=== PATIENT | female | born 1980 | race Caucasian/White ===

== ENCOUNTER → 2020-07-26 | Outpatient (CLI) | payer OTHER ==
[~2020-07-26] MED LIST: FLEXERIL PO; HYDROCODON-ACE1 EAC7 PO; HYDROCODONE-AP1 EAC6 PO; LEXAPRO20 MG PO; MEDROLDOSEPACK PO; TRAMADOL 50 MG50 MG PO; TYLENOL325 MG PO
== END ==
LOC: M.ULTRA 07:30
PROVIDERS: ATTEND Nurse Practitioner Family
DX: R10.84 Generalized abdominal pain (principal)

== ENCOUNTER 2020-09-28 08:22 | Emergency (ER) | payer OTHER ==
[~2020-09-28] VITALS: Ht 154.9 cm; Wt 90.7 kg
[2020-09-28 08:25] VITALS: BP 137/100
[2020-09-28] MEDS ORDERED: FLEXERIL PO (08:46)
[2020-09-28] MEDS ORDERED: PREDNISONE50 MG PO (08:46)
[2020-09-28] MEDS ORDERED: HYDROCODON-ACE1 EAC7 PO (08:46)
[2020-09-28] MEDS ORDERED: IBUPROFEN 800800 M1 PO (08:46)
== END 2020-09-28 08:59 | disposition home or self-care (01) ==
LOC: M.ERS 08:22
DX: M54.42 Lumbago with sciatica, left side (principal); G43.909 Migraine, unspecified, not intractable, without status migrainosus; M79.7 Fibromyalgia; Z90.89 Acquired absence of other organs; Z90.711 Acquired absence of uterus with remaining cervical stump; Z88.5 Allergy status to narcotic agent; Z91.048 Other nonmedicinal substance allergy status

== ENCOUNTER → 2021-04-03 | Outpatient (CLI) | payer OTHER ==
[~2021-04-03] MED LIST changes: +IBUPROFEN 800800 M1 PO; +PREDNISONE50 MG PO
== END ==
LOC: M.RAD 04-02 11:54
PROVIDERS: ATTEND Nurse Practitioner Family
DX: N63.21 Unspecified lump in the left breast, upper outer quadrant (principal); N60.01 Solitary cyst of right breast; N64.4 Mastodynia

== ENCOUNTER → 2021-04-09 | Outpatient (CLI) | payer OTHER ==
--- NOTE | 2021-04-10 17:06 | PATH ---
[address] [address] PATHOLOGY RPT PROCEDURE Name: LIT ARAUZLO Richard Room: [facility].#: [id number] Admission: 04/09/21 Date of : 76 Discharge: Report #: [id number] Path Case #: [id number] [facility] Accession Number: [id number] . 01 Material submitted: . breast - LEFT BREAST BIOPSY FOR MASS. Modifiers: left . 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 See comment. (STEPHANIE:pit; 04/10/2021) . QTP 04/10/2021 1236 Local . 02 Comment: The longest intact span of PASH of 8 mm is seen in a core of A6. Reviewed with Dr. Edilson Silva on 04/10/2021 who agrees with the diagnosis. (STEPHANIE:pit; 04/10/2021) . 02 Electronically signed: . William Wick MD, Pathologist NPI- [id number] . 01 Gross description: . The specimen is received in formalin, labeled "Ward Arauz, left breast mass". Received are 6 needle cores of fibrofatty tissue measuring 7.2 x 3.0 x 0.4 cm in aggregate dimensions. The specimen is submitted entirely in cassettes A1-A6. The specimen is collected at 1145 and placed into formalin at 1150 on 04/09/2021. The specimen is removed from formalin at 2140 on 04/09/2021. The total formalin fixation time is 9 hours and 50 minutes. ([facility]; 04/09/2021) NRI/NRI 04/09/2021 2138 Local . 02 Pathologist provided ICD-10: N62, N61.0 . 02 CPT . 906264 Specimen Comment: A courtesy copy of this report has been sent to [phone] Specimen Comment: Report sent to Performed at: [address] [id number] MD Edilson Silva MD Phone: [phone] Performed at: 02 [place] [address] PATHOLOGY RPT PROCEDURE Name: WARD ARAZU Room: [facility]#: [id number] Admission: 04/09/21 Date of : 76 Discharge: Report #: [id number] Path Case #: [id number] [facility] [address] [place] [id number] MD William Wick MD Phone: [phone]
== END | disposition home or self-care (01) ==
LOC: M.RAD 10:41
PROVIDERS: ATTEND Nurse Practitioner Family
DX: N62 Hypertrophy of breast (principal); N61.0 Mastitis without abscess; Z79.899 Other long term (current) drug therapy; Z88.6 Allergy status to analgesic agent

== ENCOUNTER → 2021-05-10 | Outpatient (CLI) | payer OTHER ==
[~2021-05-10] MED LIST changes: +PRISTIQ100 MG PO; +WELLBUTRIN XL300 MG PO
== END | disposition home or self-care (01) ==
LOC: M.ULTRA 10:30
PROVIDERS: ATTEND Surgery
DX: N63.20 Unspecified lump in the left breast, unspecified quadrant (principal); N62 Hypertrophy of breast; N61.0 Mastitis without abscess; F32.9 Major depressive disorder, single episode, unspecified; F41.9 Anxiety disorder, unspecified; Z79.899 Other long term (current) drug therapy

== ENCOUNTER → 2021-05-17 | Day surgery (SDC) | payer OTHER ==
--- NOTE | 2021-05-17 11:55 | OP ---
[address] [address] OPERATIVE REPORT Name: HENRY LAYNE Room: [facility] M.R.#: [id number] Admission: 05/17/21 Attend Phys: Gabby Barry DO Discharge: Date of : 76 Report #: [id number] THIS REPORT FOR: cc: Debra Parks Stefany RNP Brock, Christie M. DO ~ DATE OF SURGERY: 05/17/2021 PREOPERATIVE DIAGNOSIS: Left breast pseudoangiomatous stromal hyperplasia. POSTOPERATIVE DIAGNOSIS: Left breast pseudoangiomatous stromal hyperplasia. FINDINGS: Left breast RFID tag and clip. SURGEON: Gabby Barry DO CO-SURGEON: Jonathan Mukherjee, PGY2 UNIT OPERATOR: GARFIELD Mike. PROCEDURE PERFORMED: Left breast tag guided lumpectomy. ANESTHESIA: LMA, local and a nerve block by anesthesia. ESTIMATED BLOOD LOSS: 5 mL DRAINS: None. SPECIMENS: Left breast lumpectomy, left posterior margin, stitch short superior, long lateral. COMPLICATIONS: None. CONDITION: Stable. DISPOSITION: PACU to home. HISTORY OF PRESENT ILLNESS: The patient is a pleasant 40-year-old female who presented to my office with a change in her mammogram. She underwent an ultrasound-guided biopsy, which revealed PASH. She was then educated that this revealed a precancerous lesion and should be removed and she agreed to proceed with lumpectomy. Prior to surgery, she underwent an ultrasound-guided RFID tag placement. DESCRIPTION OF PROCEDURE: On the day of surgery, she underwent informed consent, she was taken to the OR and laid supine on the operating table. [address] [address] OPERATIVE REPORT Name: HENRY LAYNE [id number] Admission: 05/17/21 Attend Phys: Gabby Barry DO Discharge: Date of : 76 Report #: [id number] were placed on bilateral lower extremities. Ancef was given in the perioperative period. General LMA anesthesia was induced by anesthesia without difficulty. Timeout was performed to verify the patient and procedure. A 10 mL of 0.5% Marcaine were in the area of the planned incision. The KidStartgic probe had been used to identify the area of the tag. An incision was made with #15 blade. Cautery was used for hemostasis. Cautery was then utilized to perform a lumpectomy using the hologic probe for guidance. The specimen was marked in the superior and lateral direction was handed off to go to mammography in a transplant container. I felt that we were somewhat close to the posterior margin, so an additional posterior margin was taken with cautery. It was also marked with short stitch superior and long stitch lateral and was handed off as a posterior margin. At this point, the radiologist returned and indicated that we had the clip and the tag. Our wound was irrigated until clear. Hemostasis was assured. Wound was closed in a layered fashion using 3-0 Vicryl in inverted interrupted fashion. Skin wound was closed with running 4-0 Monocryl. A total of 30 mL of 0.5% Marcaine were used to anesthetize the wounds. Wound was then cleansed and covered with Dermabond. The patient was then allowed to awaken from anesthesia, was extubated and transported to the recovery room with no further difficulties. Counts were correct at the conclusion of the case. <ELECTRONICALLY SIGNED> By: Gabby Barry DO 05/17/21 1155 1031 1051Corly Barry DO /nt
--- NOTE | 2021-05-22 16:06 | PATH ---
[address] [address] PATHOLOGY RPT PROCEDURE Name: HENRY LAYNE [facility] Room: [facility] M.R.#: [id number] Admission: 05/17/21 Date of : 76 Discharge: Report #: [id number] Path Case #: [id number] [facility] Accession Number: [id number] . 01 Material submitted: . PART A: breast - LEFT BREAST LUMPECTOMY: SHORT=SUPERIOR; LONG=LATERAL. Modifiers: left PART B: breast - LEFT BREAST LUMPECTOMY POSTERIOR MARGIN: SHORT=SUPERIOR; LONG=LATERAL. Modifiers: left . 01 Clinical history: . DS/LUMPECTOMY LEFT BREAST MASS A: COLLECTED: 1108, FORMALIN 1115 B: COLLECTED: 1113, FORMALIN 1115 . 02 Diagnosis: A. Left breast lumpectomy: - Benign breast tissue with prior biopsy site, scattered pseudoangiomatous stromal hyperplasia/fibrosis, and apocrine change, negative for atypia. . B. Left breast lumpectomy posterior margin: - Benign breast tissue with evidence of prior instrumentation including fat necrosis, negative for atypia. . (STEPHANIE:juhi; 05/21/2021[facility] 05/21/2021 [facility] . 02 Electronically signed: . William Wick MD, Pathologist NPI- [id number] . 01 Gross description: . A. Fixative: Formalin Labeled: Left breast lumpectomy short = superior long = lateral Specimen received: An oriented cordero yellow lobular lumpectomy Oriented: Short suture designating superior, long suture designating lateral Dimensions: 1.6 cm from superior to inferior, 5.1 cm from anterior to posterior, and 5.6 cm from medial to lateral Weight: 20 g The specimen is inked as follows: superior-red inferior-blue anterior-green posterior-black lateral-[place] [address] PATHOLOGY RPT PROCEDURE Name: HENRY LAYNE CARLITA Room: [facility]#: [id number] Admission: 05/17/21 Date of : 76 Discharge: Report #: [id number] Path Case #: [id number] Sectioned from: Lateral to medial Number of slices: 12 slices Lesion: 1.2 x 0.9 x 0.9 cm Lesion location: Slices 8-10 Lesion to margins: Abutting the superior 0.3 cm to inferior 3.1 cm to anterior 0.9 cm to posterior 3.4 cm to lateral 1.4 cm to medial Biopsy clip: No Uninvolved breast parenchyma: Lobular, cordero-yellow with a moderate amount of fibrous breast parenchyma along the anterior and inferior margins . The specimen is submitted entirely as follows: A1-A3. Slice 1 (lateral perpendicular margin) A4-A5. Slice 2 A6-A7. Slice 3 A8-A9. Slice 4 A10-A11. Slice 5 A12-A13. Slice 6 A14-A16. Slice 7 A17-A19. Slice 8 A20-A22. Slice 9 A23-A25. Slice 10 A26-A27. Slice 11 A28-A30. Slice 12 (medial perpendicular margin). . The specimen is removed from the patient at 1108 and placed in formalin at 1136 on May 17, 2021. The specimen is removed from formalin at 1950 on May 18, 2021. The specimen is in formalin for greater than 6 hours and less than 72 hours.([facility]; 05/18/2021) . B. Fixative: Formalin Labeled: Left breast lumpectomy posterior margin short superior long lateral Specimen received: Oriented cordero yellow lobular lumpectomy Oriented: Short stitch designating superior, long stitch designating lateral Dimensions: 4.1 cm from superior to inferior, 2.2 cm from medial to lateral, and 2.4 cm from anterior to posterior Weight: 14 g The specimen is inked as follows: superior-red inferior-blue anterior-green posterior-[place] [address] PATHOLOGY RPT PROCEDURE Name: HENRY LAYNE CARLITA Room: [facility] Jose#: [id number] Admission: 05/17/21 Date of : 76 Discharge: Report #: [id number] Path Case #: [id number] medial-yellow Sectioned from: Superior to inferior Number of slices: 8 slices Lesion: No definitive lesion identified Biopsy clip: No Uninvolved breast parenchyma: Lobular, cordero-yellow . The specimen is submitted entirely as follows: B1-B3. Slice 1 (superior perpendicular margin) B4. Slice 2 B5-B6. Slice 3 B7-B8. Slice 4 B9. Slice 5 B10. Slice 6 B11. Slice 7 B12-B14. Slice 8 (inferior perpendicular margin) . The specimen is removed from the patient at 1113 and placed in formalin at 1155 on May 17, 2021. The specimen is removed from formalin at 1950 on May 18, 2021. The specimen is in formalin for greater than 6 hours and less than 72 hours.([facility]; 05/18/2021) GZA/GZA 05/18/2021 0903 Local . 02 Pathologist provided ICD-10: N60.32, N60.82, N64.1 . 02 CPT . 812918, 444362 Specimen Comment: A courtesy copy of this report has been sent to [phone] Specimen Comment: [phone] Specimen Comment: Report sent to / DR CUI Performed at: 01 [facility] [address], [place] [id number] MD Edilson Silva MD Phone: [phone] Performed at: 02 [facility] [address], [place], [place] [id number] MD William Wick MD Phone: [phone]
== END | disposition home or self-care (01) ==
LOC: M.SUR
PROVIDERS: ATTEND Surgery
DX: N62 Hypertrophy of breast (principal); N60.32 Fibrosclerosis of left breast; N60.82 Other benign mammary dysplasias of left breast; N64.1 Fat necrosis of breast; Z20.822 Contact with and (suspected) exposure to COVID-19; Z98.890 Other specified postprocedural states; Z79.899 Other long term (current) drug therapy; Z88.8 Allergy status to other drugs, medicaments and biological substances